=== PATIENT | female | born 1995 | race Caucasian/White ===

== ENCOUNTER 2017-10-13 14:50 | Emergency (ER) | payer SELFPAY ==
[2017-10-13 14:59] VITALS: BP 109/58; PULSE 112; RESP 18; TEMP 99.6; O2SAT 98
[2017-10-13] MEDS ORDERED: IBUPROFEN 600 MG TAB PO ONE (16:00)
[2017-10-13] MEDS ORDERED: PENICILLIN G BENZATHINE 1,200,000 UNITS/2 ML SYRINGE IM ONE (16:00)
--- NOTE | 2017-10-13 16:01 | PD ---
HPI Chief Complaint: ENT Complaint Time Seen by Provider: 15:42 Travel History International Travel<30 days: No Contact w/Intl Traveler<30days: No Traveled to known affect area: No History of Present Illness HPI The patient is a 22-year-old female who presents to the emergency department for sore throat of 2 days' duration. The patient does note a red, sore throat, worse with swallowing, with subjective fevers, left-sided ear pain , and anterior left-sided neck pain. The patient does have a history of similar symptoms in the past secondary to strep pharyngitis. The patient started her friend's clindamycin 2 days ago, however, continues to have symptoms. She denies any nasal congestion, cough, nausea, vomiting, or abdominal pain. She did develop diarrhea earlier today, after she started the clindamycin. She denies any rash, myalgias, or arthralgias. Symptoms are moderate, there are no current alleviating or exacerbating factors. PFSH Past Medical History Medical History: Denies Significant Hx LMP: 10/13/17 Past Surgical History Surgical History: No Previous Surgery Social History Tobacco Use: No Allergies-Medications (Allergen,Severity, Reaction): Coded Allergies: No Known Allergies (Unverified , 10/13/17) Review of Systems Except as stated in HPI: all other systems reviewed are Neg General / Constitutional: Positive: Fever HENT: Positive: Sore Throat, No: Congestion Respiratory: No: Cough Gastrointestinal: Positive: Diarrhea, No: Nausea, Vomiting, Abdominal Pain Musculoskeletal: No: Myalgias, Arthralgias Skin: No Rash Physical Exam Narrative GENERAL: Awake, alert, pleasant 22-year-old female who appears her stated age and is in no acute respiratory distress. SKIN: Focused skin assessment warm/dry. HEAD: Atraumatic. Normocephalic. EYES: Pupils equal and round. No scleral icterus. No injection or drainage. ENT: No nasal bleeding or discharge. Oropharynx reveals diffuse erythema without exudate. TMs are translucent. EACs are clear. NECK: Trachea midline. No JVD. Bilateral anterior cervical lymphadenopathy, mobile, tender. CARDIOVASCULAR: Regular rate and rhythm. No murmur appreciated. RESPIRATORY: No accessory muscle use. Clear to auscultation. Breath sounds equal bilaterally. MUSCULOSKELETAL: No obvious deformities. No clubbing. No cyanosis. No edema. NEUROLOGICAL: Awake and alert. No obvious cranial nerve deficits. Motor grossly within normal limits. Normal speech. PSYCHIATRIC: Appropriate mood and affect; insight and judgment normal. Data Data Last Documented VS Vital Signs Date Time Temp Pulse Resp B/P (MAP) Pulse Ox O2 Delivery O2 Flow Rate FiO2 10/13/17 14:59 99.6 112 18 109/58 (75) 98 Orders Orders Group A Rapid Strep Screen (10/13/17 15:05) Influenzae A/B Antigen (10/13/17 15:47) Ibuprofen (Motrin) (10/13/17 16:00) Penicillin G Benzathine Inj (Bicillin L- (10/13/17 16:00) MDM Medical Decision Making Medical Screen Exam Complete: Yes Emergency Medical Condition: Yes Medical Record Reviewed: Yes Differential Diagnosis Differential diagnosis includes strep pharyngitis, viral pharyngitis, influenza , viral syndrome, URI. Narrative Course Strep screen was sent to lab, was positive. I had a discussion with the patient regarding Pen-Vee K 4 times a day for 10 days versus Bicillin LA. After discussion, as agreed the patient would receive Bicillin 1.2 million units LA IM. The patient also received ibuprofen orally. She is advised to follow-up with her primary physician and return if symptoms worsen or progress. Diagnosis Primary Impression: Strep pharyngitis Patient Instructions: General Instructions Additional Instructions: Alternate Tylenol motion for pain and fever. Plenty fluids to stay hydrated. Follow-up with your primary physician. Med/Other Pt SpecificInfo: Med Stopped (stop taking clindamycin from your friend), No Change to Meds Disposition: 01 DISCHARGE HOME Condition: Stable William Davison MD Oct 13, 2017 16:01
== END 2017-10-13 18:13 | disposition home or self-care (01) ==
LOC: NEPD 14:50
DX: J02.0 Streptococcal pharyngitis (principal); R19.7 Diarrhea, unspecified; H92.02 Otalgia, left ear; M54.2 Cervicalgia
CPT/HCPCS: 87804; 87880; 96372; 99284; J0561